=== PATIENT | female | born 2000 | race Caucasian/White ===

== ENCOUNTER 2020-12-03 15:45 | Emergency (ER) | payer OTHER ==
[~2020-12-03] VITALS: Ht 170.2 cm; Wt 63.0 kg
[~2020-12-03 15:45] MED LIST: ACET120S; AMOX50SU PO; Bentyl20 MG PO; NAPROXEN; PROM25 PO; TRIM200S PR
[2020-12-03] MEDS ORDERED: CEPH500 PO (16:10)
[2020-12-03] MEDS ORDERED: Bactrim Ds Tab1 EACH PO (16:10)
== END 2020-12-03 16:38 | disposition home or self-care (01) ==
LOC: ER 15:45
DX: L02.211 Cutaneous abscess of abdominal wall (principal); Z88.1 Allergy status to other antibiotic agents; Z79.899 Other long term (current) drug therapy
CPT/HCPCS: 99282